=== PATIENT | male | born 1990 | race Caucasian/White ===

== ENCOUNTER 2023-07-02 16:32 | Emergency (ER) | payer SELFPAY ==
[~2023-07-02] VITALS: Ht 167.6 cm; Wt 79.0 kg
[2023-07-02 16:38] VITALS: O2SAT 98
[2023-07-02 18:54] VITALS: BP 141/87; PULSE 76; RESP 18; TEMP 97.4
== END 2023-07-02 18:58 | disposition home or self-care (01) ==
LOC: ER 16:32
DX: R51.9 Headache, unspecified (principal)
CPT/HCPCS: 99281